=== PATIENT | female | born 1955 | race Hispanic/Latino ===

== ENCOUNTER 2021-06-13 16:07 | Inpatient (IN) | payer MEDICARE ==
[~2021-06-13] VITALS: Ht 160 cm; Wt 143.7 kg
[2021-06-13 16:53] LABS: BASOPHILS % (AUTO) 0.6 % (0.0-5.0); EOSINOPHILS % (AUTO) 7.2 % (0.0-8.0); HEMATOCRIT 45.5 % (36-48); LYMPHOCYTES % (AUTO) 21.7 % (21.0-51.0); MEAN CORPUSCULAR HEMOGLOBIN 31.7 pg (27.0-33.0); MEAN CORPUSCULAR HGB CONC 31.9 g/dL (32.0-36.0); MEAN CORPUSCULAR VOLUME 99.3 fL (79-99); MONOCYTES % (AUTO) 9.9 % (3.0-13.0); PLATELET COUNT (AUTO) 190 K/uL (130-400); RED BLOOD CELL COUNT(AUTO) 4.58 MIL/uL (4.00-5.50); RED CELL DISTRIBUTION WIDTH 14.9 % (11.0-15.5); WHITE BLOOD COUNT (AUTO) 7.1 K/uL (4.8-10.8)
[2021-06-13 17:01] LABS: CREATININE 0.9 mg/dL (0.5-1.5); POTASSIUM 3.7 mmol/L (3.5-5.1)
[2021-06-13 17:10] LABS: ALBUMIN 3.5 g/dL (3.5-5.0); BILIRUBIN,TOTAL 0.8 mg/dL (0.2-1.0); TOTAL PROTEIN, SERUM 7.7 g/dL (6.0-8.3)
[2021-06-13 17:19] LABS: B-TYPE NATRIURETIC PEPTIDE 7 pg/mL (0-100)
[2021-06-13] MEDS ORDERED: FUROSEMIDE 40MG VIAL IV ONE (18:00)
[2021-06-13] MEDS ORDERED: ALBUTEROL 0.083% 2.5 MG/3 ML INH IH ONE (18:00)
[2021-06-13 18:10] LABS: ABG BASE EXCESS 0.2 mmol/L (-2.0-3.0); ABG HCO3 28.1 mmol/L (21.0-28.0); ABG OXYGEN SATURATION 80.7 % (95.0-99.0); ABG PCO2 59 mmHg (32-45)
[2021-06-13] MEDS ORDERED: SOLU-MEDROL 125MG VIAL ONE (18:27)
[2021-06-13] MEDS ORDERED: SOLU-MEDROL 125MG VIAL IVP ONE (18:30)
[2021-06-13 19:35] LABS: APPEARANCE,URINE Clear (CLEAR); BILIRUBIN,URINE Negative (NEGATIVE); COLOR,URINE Yellow (YELLOW); GLUCOSE, URINE (UA) Negative (NEGATIVE); KETONES,URINE Negative (NEGATIVE); LEUKOCYTE ESTERASE ,URINE Trace (NEGATIVE); NITRATE,URINE Positive (NEGATIVE); OCCULT BLOOD,URINE Negative (NEGATIVE); PH,URINE 5.5 (5.0-8.0); PROTEIN,URINE Negative (NEGATIVE); UROBILINOGEN,URINE 0.2 mg/dL (0.2-1.0)
[2021-06-13 19:53] LABS: BACTERIA,URINE Moderate /HPF (None Seen); MUCUS,URINE Few LPF (None Seen); SQUAMOUS EPITHELIAL CELL,UR 0-2 /HPF (0-2)
[2021-06-13] MEDS ORDERED: ACETAMINOPHEN 325 MG TAB PO PRN (20:00)
[2021-06-13 20:43] LABS: CREATININE 0.9 mg/dL (0.5-1.5); POTASSIUM 3.7 mmol/L (3.5-5.1)
[2021-06-13] MEDS: SOLU-MEDROL 40MG VIAL IVP SCH (21:13)
[2021-06-13] MEDS: 0.9%NACL 1000ML 1,000 ML IV SCH (21:13)
[2021-06-13] MEDS: CEFTRIAXONE 1G VIAL IV SCH (21:13)
[2021-06-13] MEDS: FAMOTIDINE 20MG TAB PO SCH (21:13)
[2021-06-13] MEDS: ONDANSETRON 4MG INJ IV PRN (21:20)
[2021-06-13] MEDS ORDERED: LORAZEPAM 2 MG/ML 1 ML VIAL ONE (22:15)
[2021-06-13] MEDS ORDERED: LORAZEPAM 2 MG/ML 1 ML VIAL IVP ONE (22:30)
[2021-06-14] MEDS ORDERED: IPRATROPIUM/ALBUTEROL SULFATE 3 ML SOLUTION IH SCH
[2021-06-14] MEDS ORDERED: IOHEXOL 350 MG/ML 100ML INFUS..BTL IV ONE ×2 (00:06→00:58)
[2021-06-14] MEDS: IPRATROPIUM/ALBUTEROL SULFATE 3 ML SOLUTION IH SCH ×7 (00:20→23:40)
[2021-06-14 04:00] VITALS: BP 167/98
[2021-06-14] MEDS ORDERED: 0.9%NACL 10ML VIAL ONE (05:02)
[2021-06-14] MEDS: ONDANSETRON 4MG INJ IV PRN (05:06)
[2021-06-14] MEDS: SOLU-MEDROL 40MG VIAL IVP SCH ×2 (05:06→12:28)
[2021-06-14 06:19] LABS: BASOPHILS % (AUTO) 0.2 % (0.0-5.0); LYMPHOCYTES % (AUTO) 12.7 % (21.0-51.0); MEAN CORPUSCULAR HEMOGLOBIN 31.3 pg (27.0-33.0); MEAN CORPUSCULAR HGB CONC 31.7 g/dL (32.0-36.0); MEAN CORPUSCULAR VOLUME 98.7 fL (79-99); MONOCYTES % (AUTO) 0.9 % (3.0-13.0); NEUTROPHILS % (AUTO) 85.8 % (40.0-77.0); PLATELET COUNT (AUTO) 197 K/uL (130-400); RED BLOOD CELL COUNT(AUTO) 4.76 MIL/uL (4.00-5.50); WHITE BLOOD COUNT (AUTO) 5.7 K/uL (4.8-10.8)
[2021-06-14 06:35] LABS: INR 1.04 (0.85-1.15); PROTHROMBIN TIME 11.3 SEC (9.6-11.6)
[2021-06-14 06:37] LABS: PARTIAL THROMBOPLASTIN TIME 25.3 SEC (26.3-35.5)
[2021-06-14 06:47] LABS: MAGNESIUM 2.2 mg/dL (1.80-2.40); PHOSPHORUS 3.4 mg/dL (2.5-4.9)
[2021-06-14 07:51] LABS: ABG HCO3 31.4 mmol/L (21.0-28.0); ABG OXYGEN SATURATION 94.9 % (95.0-99.0); ABG PCO2 58 mmHg (32-45)
[2021-06-14 08:00] VITALS: BP 143/82
[2021-06-14 08:10] LABS: ABG BASE EXCESS -0.3 mmol/L (-2.0-3.0); ABG HCO3 26.8 mmol/L (21.0-28.0); ABG OXYGEN SATURATION 96.2 % (95.0-99.0); ABG PCO2 53 mmHg (32-45)
[2021-06-14] MEDS: FAMOTIDINE 20MG TAB PO SCH ×2 (09:30→21:25)
[2021-06-14] MEDS: ENOXAPARIN SODIUM 40 MG/0.4 ML SYRINGE SQ SCH (09:30)
[2021-06-14] MEDS: 0.9%NACL 1000ML 1,000 ML IV SCH (09:30)
[2021-06-14 12:00] VITALS: BP 134/79
[2021-06-14] MEDS ORDERED: VALS160T29 PO (14:43)
[2021-06-14] MEDS ORDERED: LORA10TA7 PO (14:43)
[2021-06-14 16:00] VITALS: BP 150/73
[2021-06-14 19:50] VITALS: BP 142/92
[2021-06-14] MEDS: CEFTRIAXONE 1G VIAL IV SCH (21:24)
[2021-06-14] MEDS: AcetaZOLAMIDE 250 MG TAB PO SCH (21:25)
[2021-06-14 23:40] VITALS: BP 134/67
[2021-06-15 04:04] LABS: BASOPHILS % (AUTO) 0.1 % (0.0-5.0); HEMATOCRIT 43.8 % (36-48); LYMPHOCYTES % (AUTO) 9.7 % (21.0-51.0); MEAN CORPUSCULAR HEMOGLOBIN 31.2 pg (27.0-33.0); MEAN CORPUSCULAR HGB CONC 31.7 g/dL (32.0-36.0); MEAN CORPUSCULAR VOLUME 98.2 fL (79-99); MONOCYTES % (AUTO) 4.7 % (3.0-13.0); PLATELET COUNT (AUTO) 185 K/uL (130-400); RED BLOOD CELL COUNT(AUTO) 4.46 MIL/uL (4.00-5.50); RED CELL DISTRIBUTION WIDTH 14.8 % (11.0-15.5); WHITE BLOOD COUNT (AUTO) 9.9 K/uL (4.8-10.8)
[2021-06-15 04:23] LABS: B-TYPE NATRIURETIC PEPTIDE 18 pg/mL (0-100)
[2021-06-15 04:24] LABS: ALBUMIN 3.1 g/dL (3.5-5.0); BILIRUBIN,TOTAL 0.6 mg/dL (0.2-1.0); CREATININE 0.9 mg/dL (0.5-1.5); POTASSIUM 4.1 mmol/L (3.5-5.1); TOTAL PROTEIN, SERUM 7.2 g/dL (6.0-8.3)
[2021-06-15 04:50] VITALS: BP 140/64
[2021-06-15] MEDS: IPRATROPIUM/ALBUTEROL SULFATE 3 ML SOLUTION IH SCH ×3 (07:12→17:56)
[2021-06-15 08:00] VITALS: BP 119/70
[2021-06-15] MEDS ORDERED: PREDNISONE 10 MG TABLET PO SCH (09:00)
[2021-06-15] MEDS ORDERED: LORATADINE 10 MG TABLET PO SCH (09:00)
[2021-06-15] MEDS ORDERED: LOSARTAN 100 MG TABLET PO SCH (09:00)
[2021-06-15] MEDS: AcetaZOLAMIDE 250 MG TAB PO SCH (09:14)
[2021-06-15] MEDS: FAMOTIDINE 20MG TAB PO SCH (09:14)
[2021-06-15] MEDS: ENOXAPARIN SODIUM 40 MG/0.4 ML SYRINGE SQ SCH (09:15)
[2021-06-15 12:00] VITALS: BP 123/77
[2021-06-15 15:48] VITALS: BP 140/92
[2021-06-15 19:00] VITALS: BP 132/64
[2021-06-15] MEDS ORDERED: NITR100C4 PO (19:33)
[2021-06-15] MEDS ORDERED: LORA10TA7 PO (19:36)
[2021-06-15] MEDS ORDERED: PRED10B PO (19:36)
[2021-06-15] MEDS ORDERED: ALBU90AE2 IH (19:44)
== END 2021-06-15 21:19 | disposition home or self-care (01) | DRG 189 ==
LOC: EDH 16:07 → EDHIP 19:53 → 2DH 06-14 02:08
PROVIDERS: ADMIT Internal Medicine; ATTEND Internal Medicine
PROC: 5A09357 Assistance with Respiratory Ventilation, Less than 24 Consecutive Hours, Continuous Positive Airway Pressure (ICD-10-PCS; principal; 2021-06-13)
PROC: 5A09357 Assistance with Respiratory Ventilation, Less than 24 Consecutive Hours, Continuous Positive Airway Pressure (ICD-10-PCS; 2021-06-14)
PROC: 5A09357 Assistance with Respiratory Ventilation, Less than 24 Consecutive Hours, Continuous Positive Airway Pressure (ICD-10-PCS; 2021-06-15)
DX: J96.01 Acute respiratory failure with hypoxia (principal); N39.0 Urinary tract infection, site not specified; Z68.43 Body mass index [BMI] 50.0-59.9, adult; Z16.20 Resistance to unspecified antibiotic; J96.02 Acute respiratory failure with hypercapnia; E66.01 Morbid (severe) obesity due to excess calories; B96.20 Unspecified Escherichia coli [E. coli] as the cause of diseases classified elsewhere; I10 Essential (primary) hypertension; Z20.822 Contact with and (suspected) exposure to COVID-19; Z79.899 Other long term (current) drug therapy; Z90.710 Acquired absence of both cervix and uterus
CPT/HCPCS: 36415; 36600; 71045; 71275; 80048; 80053; 81001; 82435; 82803; 82947; 83605; 83735; 83880; 84100; 84132; 84295; 84484; 85018; 85025; 85378; 85610; 85730; 87077; 87088; 87186; 87635; 87804; 93005; 93970; 94640; 94660; 94664; 94760; 99291; C9803; G0378; J0696; J1650; J1940; J2060; J2405; J2920; J2930; J7030; J7512; Q9967